=== PATIENT | female | born 1975 | race Caucasian/White ===

== ENCOUNTER 2016-10-01 05:50 | Emergency (ER) | payer OTHER ==
[~2016-10-01] VITALS: Ht 170.2 cm; Wt 77.1 kg
[~2016-10-01 05:50] MED LIST: AMPHETAMINE SAL30 MG PO; CIPRO 500MG TA500 MG PO; IBUPROFEN800 MG PO; LORAZEPAM0.5 MG PO; PERCOCET 325 MG1 TA2 PO; PROCTOFOAM-HC 11 FOA RC
--- NOTE | 2016-10-01 05:54 | ED AMS/SEIZURE/WEAK/DIZZY ---
See Addendum History of Present Illness General Chief Complaint: ETOH/Drug Related Complaint Stated Complaint: ETOH Source: family, EMS Exam Limitations: unable to give history, intoxication Vital Signs & Intake/Output Vital Signs & Intake/Output Vital Signs Date Time Temp Pulse Resp B/P Pulse O2 O2 Flow FiO2 Ox Delivery Rate 10/02 0857 97.9 56 12 121/63 98 Room Air 10/02 0648 98.4 64 18 105/57 96 Room Air 10/01 2118 97.3 78 18 135/79 97 10/01 1656 98.0 74 18 108/58 98 10/01 1139 96.2 76 17 112/58 96 Room Air ED Intake and Output 10/02 0000 10/01 1200 Intake Total 0 Output Total Balance 0 Intake, Oral 0 Patient 170 lb Weight Allergies Coded Allergies: NO KNOWN ALLERGIES (07/22/15) Reconcile Medications Amphetamine Salt Combination (Amphetamine Salt Combo) 30 MG TAB 1 TAB PO DAILY ADD (Reported) Ciprofloxacin (Cipro) 500 MG TAB 1 TAB PO BID URINARY TRACT INFECTION Ibuprofen 800 MG TAB 1 TAB PO 4 TIMES/DAY PRN PAIN OXYCODONE HCL/ACETAMINOPHEN (Percocet 5-325 MG Tablet) 325 MG/5 MG TAB 1-2 TAB PO Q4-6 PRN PRN PAIN TEN TABS... [id number] Triage Nurses Notes Reviewed? yes Onset: Gradual Duration: hour(s):, waxing and waning Timing: recent history Injury Environment: home Severity: moderate Modifying Factors: Improves With: rest. Associated Symptoms: increased agitation HPI: 40 yo woman presents with suicidality and agitation. Per the medics, "We were called because she exressed suicidality to her family... When we got there, she had been drinking... She was agitated and belligerent. The police were there and put her into handcuffs." She presents to the ED, somnolent but easily arousable. "It would be better if I hadn't been put into handcuffs," she states. She is otherwise non verbal about her suicidal intent. She denies pain and injury. (MARCIANO PONCE,INOCENCIO Alvares) Past History Travel History Traveled to [place] past 21 day No Medical History Any Pertinent Medical History? see below for history Neurological: migraine EENT: NONE Cardiovascular: NONE Respiratory: NONE Gastrointestinal: NONE Hepatic: NONE Renal: NONE Musculoskeletal: NONE Psychiatric: ADD Endocrine: hyperparathyroidism Blood Disorders: anemia Cancer(s): NONE OIL AND GAS LEASE PUMPER/Reproductive: NONE History of MRSA: No History of VRE: No History of CDIFF: No Tetanus Vaccine: 03/28/15 Surgical History Surgical History: PARATHYROID, C-SECT X 2 HYSTERECTOMY Psychosocial History Who do you live with Family Services at Home None What is your primary language Bahamian Family History Hx Contributory? No (MARCIANO PONCE,INOCENCIO Alvares) Review of Systems Review of Systems Constitutional: Reports: no symptoms. EENTM: Reports: no symptoms. Respiratory: Reports: no symptoms. Cardiovascular: Reports: no symptoms. GI: Reports: no symptoms. Genitourinary: Reports: no symptoms. Musculoskeletal: Reports: no symptoms. Skin: Reports: no symptoms. Neurological/Psychological: Reports: no symptoms. Hematologic/Endocrine: Reports: no symptoms. Immunologic/Allergic: Reports: no symptoms. All Other Systems: Reviewed and Negative (MARCIANO PONCE,INOCENCIO Alvares) Physical Exam Physical Exam General Appearance: well developed/nourished, lethargic Head: atraumatic, normal appearance Eyes: Bilateral: normal appearance, PERRL, EOMI. Ears, Nose, Throat: normal pharynx, normal ENT inspection Neck: normal inspection, supple, full range of motion Respiratory: normal breath sounds, chest non-tender, no respiratory distress, quiet respiration, lungs clear Cardiovascular: regular rate/rhythm Gastrointestinal: normal bowel sounds, soft, non-tender, no organomegaly Back: normal inspection, normal range of motion Extremities: normal range of motion Neurologic/Psych: no motor/sensory deficits, awake, somnolent, easily arousable. Skin: intact, normal color, warm/dry Core Measures ACS in differential dx? No CVA/TIA Diagnosis: No Severe Sepsis Present: No Septic Shock Present: No (MARCIANO PONCE,INOCENCIO Alvares) Progress Differential Diagnosis: drug intoxication, electrolyte imbalance Plan of Care: Orders Procedure Date/time Status Continuous Observation Monitor 10/02 1040 Active Continuous Observation Monitor 10/02 0645 Active Continuous Observation Monitor 10/02 0245 Active Continuous Observation Monitor 10/01 2244 Active Restraint- Discontinue 10/01 2130 Active Patient Safety Monitor 10/01 1730 Active Restraint- Behavioral (Initial 10/01 1730 Active Laboratory Tests 10/01/16 1230: Urine Opiates Screen < 100.00, Methadone Screen 43, Barbiturate Screen < 60, Ur Phencyclidine Scrn < 6.00, Amphetamines Screen > 1450 H, U Benzodiazepines Scrn < 85, Urine Cocaine Screen < 50, Urine Cannabis Screen > 80.00 H 7:20 AM Patient signed out to me by Dr. Akbar at change of shift. Pending crisis evaluation. 10/02/2016 7:19:08 AM Signed out to me by Dr. Akbar. Pending crisis evaluation and disposition. 11:07AM PATIENT TRANSFERRED TO [facility] FOR MAJOR DEPRESION ACCEPTING DOCTOR. DR JAIME LEONARD. (MARY ZHOU MD) Initial ED EKG: none Hand-Off Endorsed To: MARY ZHOU MD (MARCIANO PONCE,INOCENCIO Alvares) Departure Departure Condition: Stable Clinical Impression Primary Impression: Depression Referrals: APRIL MACIAS DO (PCP/Family) Referred to [facility] as new patient No Departure Forms: Customer Survey General Discharge Information (MARCIANO PONCE,INOCENCIO Alvares) Departure Time of Disposition: 1107 Disposition: [facility] (AC[facility]) (MARY ZHOU MD) Critical Care Note Critical Care Note Critical Care Time: 30-74 min (MARY ZHOU MD)
[2016-10-01 06:10] LABS: ABSOLUTE BASOPHIL COUNT 0.1 /CUMM (0.0-0.2); ABSOLUTE EOSINOPHIL COUNT 0.1 /CUMM (0.0-0.7); ABSOLUTE GRANULOCYTE CT 6.2 /CUMM (1.4-6.5); ABSOLUTE LYMPH COUNT 2.3 /CUMM (1.2-3.4); ABSOLUTE MONOCYTE COUNT 0.6 /CUMM (0.10-0.60); BASOPHIL % 0.7 % (0.0-2.0); EOSINOPHIL % 0.7 % (0-5); GRANULOCYTE % 67.3 % (42.2-75.2); HEMATOCRIT 40.9 % (37-47); MEAN CORPUSCULAR HGB 30.8 PG (27.0-31.0); MEAN CORPUSCULAR HGB CONC 34.1 G/DL (33.0-37.0); MEAN CORPUSCULAR VOLUME 90.5 FL (81.0-99.0); MEAN PLATELET VOLUME 6.8 FL (7.4-10.4); PLATELET COUNT 244 /CUMM (130-400); RBC DISTRIBUTION WIDTH 13.9 % (11.5-14.5); RED BLOOD CELL CT 4.52 /CUMM (4.20-5.40); WHITE BLOOD CELL COUNT 9.2 /CUMM (4.8-10.8)
--- NOTE | 2016-10-01 16:38 | ED PSYCH CRISIS CONSULTATION ---
See Addendum Crisis Consult Basic Assessment Date of Consult: 10/01/16 Responsible Person/Accompanied By: Boyfriend and daughter Insurance Authorization: Insurance #1: Insurance name: XAVIER Alvarez C&A Phone number: Policy number: [id number] Group number: Authorization number: n/a ED Provider: Patient's ED Provider: MARCIANO PONCE,BRANDON Alvares Primary Care Physician: Patient's PCP: APRIL MACIAS DO PCP's Current Psychiatrist: none, but sees Naila Chiu LCSW Chief Complaint: ETOH/Drug Related Complaint Patient's Quote: "I'm Tired" Present Illness: 40 female brought in on a PEER which states that pt. sent text messages to a friend saying that "she did not want to live anymore and was sorry". Paper reports that pt was also intoxicated. Pt's boyfriend (Junior Cueva) reported to this shell trim tool setter that he was the "friend" who she was texting last night. Mr. Cueva reports that he and pt had gone to a [employer] last night with pt's 19 year old daughter. Mr. Cueva reports that pt was in a good mood, but she was drinking heavily (Mr. Cueva reports that she probably had about 7 or 8 glasses of wine and was definitely intoxicated). Mr. Ivey reports that he took pt and her daughter and home and started driving home himself. He began to get a chain of text messages from pt stating, "I can t do this anymore" and "I'm sorry" and "please tell my kids I'm sorry" repeatedly. Mr. Ivey texted her back trying to get her to not be upset and trying to find out where she was so that he could send the police. Mr. Ivey said that he found out from pt's daughter that pt had gone to her ex-husbands house after she got home from the alliance party and had an argument with her ex. Pt's daughter called the police after Mr. Ivey told her about pt's text messages but they could not locate her. Two hours later at around 4:00am, pt texted Mr. McKerney again that she was sorry and could not do anymore nut this time said she was at home. Mr Ivey reports that he called 911 again and this time the police brought pt to the ED. Pt's BAL upon arrival top ED was .60. Today, after speaking with Mr. Ivey who said that he believes that pt. should be hospitalized, this shell trim tool setter spoke to pt who was tearful and said "I'm just tired" and that there was "so much going on" and that she was "tired of playing games" with her ex. She acknowledge that she had thoughts of "just wanting to go to sleep" last night and did take OTC sleeping pills. When asked how many, pt said "I don't know". When asked if she was trying to kill herself, pt said, "I don't know". Pt reports that she uses alcohol about two or three days a week, drinking 3 or 4 glasses of wine on occasion. She reports that she drank more than usual last night because it was a "alliance party", but does not know how many glasses of wine she had. She reports that she also uses cannabis 3 or 4 days a week. Pt reports that she just started seeing therapist Naila Chiu at outpatient and will be seeing her once a week. Pt reports that she is on medication for ADD (Adderall 20mg/TID). She denies any other medications. Pt reports that he does not want to be admitted and said that she has no thoughts of killing herself today but that she "just wants things to get better". Patient's Address: [address] [place] [address] Other Phone Number: Who Do You Live With? Daughter Family/Informants Interviewed: Boyfriend, Junior Cueva, Allergies - Coded Allergies: NO KNOWN ALLERGIES (07/22/15) Current Medications - Scheduled Medications Amphetamine Salt Combination (Amphetamine Salt Combo) 30 MG TAB 1 TAB PO DAILY ADD #90 (Reported) Entered as Reported by NORBERT TAYLOR on 10/27/14 1303 Ciprofloxacin (Cipro) 500 MG TAB 1 TAB PO BID URINARY TRACT INFECTION 10 Days Prescribed by ANILA TARIQ MD on 07/23/15 Scheduled PRN Medications Ibuprofen 800 MG TAB 1 TAB PO 4 TIMES/DAY PRN PAIN #30 TAB Prescribed by ANILA TARIQ MD on 07/23/15 OXYCODONE HCL/ACETAMINOPHEN (Percocet 5-325 MG Tablet) 325 MG/5 MG TAB 1-2 TAB PO Q4-6 PRN PRN PAIN #10 TAB Prescribed by ANILA TARIQ MD on 07/23/15 Laboratory Results: Laboratory Tests 10/01/16 1230: Urine Opiates Screen < 100.00, Methadone Screen 43, Barbiturate Screen < 60, Ur Phencyclidine Scrn < 6.00, Amphetamines Screen > 1450 H, U Benzodiazepines Scrn < 85, Urine Cocaine Screen < 50, Urine Cannabis Screen > 80.00 H 10/01/16 0600: Anion Gap 11, Estimated GFR > 60, BUN/Creatinine Ratio 14.3, Glucose 84, Calcium 9.1, Total Beta HCG NEGATIVE, CBC w Diff NO MAN DIFF REQ, RBC 4.52, MCV 90.5, MCH 30.8, RDW 13.9, MPV 6.8 L, Gran % 67.3, Lymphocytes % 25.2, Monocytes % 6.1 , Eosinophils % 0.7, Basophils % 0.7, Absolute Granulocytes 6.2, Absolute Lymphocytes 2.3, Absolute Monocytes 0.6, Absolute Eosinophils 0.1, Absolute Basophils 0.1, PUBS MCHC 34.1, Serum Alcohol 60.0 Past History Past Medical History Neurological: migraine EENT: NONE Cardiovascular: NONE Respiratory: NONE Gastrointestinal: NONE Hepatic: NONE Renal: NONE Musculoskeletal: NONE Psychiatric: ADD Endocrine: hyperparathyroidism Blood Disorders: anemia Cancer(s): NONE CLINIC LEAD/Reproductive: NONE Past Surgical History Surgical History: PARATHYROID, C-SECT X 2 HYSTERECTOMY Psychosocial History Strengths/Capabilities: in treatment, supportive boyfriend Physical Limitations (Interventions): none known Psychiatric Treatment History Psych Treatment Psychiatric Treatment Yes Inpatient Treatment Yes Outpatient Treatment Yes Location of Treatment IP- unk; OP - various, most recently [facility] Reason for Treatment Depression Dates of Treatment IP - as a teenager; OP - current Response to Treatment unk Diagnosis by History: ADD Substance Use/Abuse History Drug Use/Abuse 1 Substances Used/Abused Yes Substance Used/Abused Alcohol First Use unk Last Used last night How much used/taken several glasses How often 2 or 3 days a week For how long unk Route of use oral Drug Use/Abuse 2 Substances Used/Abused Yes Substance Used/Abused Marijuana First Use unk Last Used a few days ago How much used/taken unk How often 3 or 4 days/week For how long unk Route of use smoking Substance Abuse Treatment Substance Abuse Treatment Past Substance Abuse [place] No Comments: n/a Current Mental Status Mental Status Orientation: Person, Place, Situation Affect: Anxious, Depressed Speech: WNL Neuro-vegetative: Anhedonia, Helpless Appearance Appearance- Dress/Hygiene: disheleved, puffy eyes, bruises on arms Behaviors Thought Process: WNL Thought Content: WNL Memory: WNL Insight: Poor SI/HI Risk Assessment Past Suicidal Ideation/Attempts Yes Current Suicidal Ideation/Att No Past Homicidal Ideation/Att: No Current Homicidal Ideation/Attempts No Degree of Intent: None Danger To: Self (took sleeping pills last night) Gravely Disabled: none Risk Factors: chronic/serious med cond., high anxiety/distress, history of suicide atmpts, SA/MH hospitalized, substance abuse, poor impulse control Lethality Ratin PTSD Checklist PTSD Done? patient declined ED Management Sitter: Yes Restraints: Yes DSM5/PS Stressors/Medical Prob Diagnosis' (DSM 5, Stressors, Medical): F33.2 - MDD, recc, severe; F10.20 - ETOH use D/O, moderate; stressors 0- financial, unemployment, conflict with ex; Medical :[id number] jaw tumor syndrome. Current GAF: 24 Comments: Pt made suicidal statements last night and took sleeping pills while intoxicated. Pt remains very depressed and tearful with several stressors. Departure Disposition Psych Medical Clearance Date: 10/01/16 Medically Cleared at: 1430 Time Started: 1430 Time Ended: 151 Psychiatrist Consulted: Brandon Joel MD Disposition Established: 10/01/16 Time Disposition Established: 1514 Plan for Disposition - Modality: Bed Search Facility: TBD Contact: TBD Telephone: TBD Rationale for Disposition: Pt is at current risk of harm to self Type of IP Admission: PEC Additional Instructions: Bed search will be done. If no beds found pt will be h/o in ED and re-eval'ed tomorrow AM. Referrals APRIL MACIAS DO (PCP/Family)
[2016-10-02 11:12] VITALS: BP 128/72
== END 2016-10-02 12:15 | disposition short-term general hospital (02) ==
LOC: ERH 05:50
PROVIDERS: Pediatrics
DX: F32.9 Major depressive disorder, single episode, unspecified (principal)
CPT/HCPCS: 96372; G0463; G0479; G0480; J1200; J1630; J3490